=== PATIENT | male | born 1945 | race Caucasian/White ===

== ENCOUNTER → 2019-02-26 | Outpatient (CLI) | payer MEDICARE, OTHER ==
[~2019-02-26] MED LIST: ASPI81EC PO; B Complex1 EAC2 PO; CHOL10002 PO; Complete Multi1 EAC1 PO; DETROL; DIPATR PO; HYDMOR2 PO; LACT10SY PO; LISI5 PO; LORA.5; LORA1 PO; OMEP20ER PO; OXYACE5T PO; POTCIT5 PO; PROM25 PO; Prinivil10 MG PO; SULTRIDS PO; Vitamin C1000 M1 PO; ZOLP5
== END | disposition home or self-care (01) ==
LOC: PLD 10:04 → LAB SHORT 10:04
DX: C44.519 Basal cell carcinoma of skin of other part of trunk (principal)
CPT/HCPCS: 88305

== ENCOUNTER 2020-01-28 19:02 | Emergency (ER) | payer MEDICARE, OTHER ==
[~2020-01-28] VITALS: Ht 172.7 cm; Wt 74.8 kg
== END 2020-01-28 20:17 | disposition home or self-care (01) ==
LOC: ER 19:02
DX: N32.89 Other specified disorders of bladder (principal); F41.9 Anxiety disorder, unspecified; I10 Essential (primary) hypertension
CPT/HCPCS: 51798; 99282-25; A9270

== ENCOUNTER → 2020-11-23 | Outpatient (CLI) | payer MEDICARE, OTHER, BC ==
[~2020-11-23] MED LIST changes: +ATIVAN0.5 MG PO
== END ==
LOC: LAB SHORT 12:16 → PLD 12:16
DX: L08.89 Other specified local infections of the skin and subcutaneous tissue (principal)
CPT/HCPCS: 88305

== ENCOUNTER 2021-02-03 12:07 | Day surgery (SDC) | payer MEDICARE, OTHER, BC ==
[~2021-02-03] VITALS: Ht 172.7 cm; Wt 73.4 kg
== END 2021-02-03 14:35 | disposition home or self-care (01) ==
LOC: ORSCSDS 12:07
PROVIDERS: Surgery
PROC: 0DJD8ZZ Inspection of Lower Intestinal Tract, Via Natural or Artificial Opening Endoscopic (ICD-10-PCS; principal; 2021-02-03 13:30)
PROC: 0DB58ZX Excision of Esophagus, Via Natural or Artificial Opening Endoscopic, Diagnostic (ICD-10-PCS; principal; 2021-02-03 13:30)
DX: K21.9 Gastro-esophageal reflux disease without esophagitis (principal); K59.00 Constipation, unspecified; Z86.010 Personal history of colon polyps; I10 Essential (primary) hypertension; Z79.899 Other long term (current) drug therapy
CPT/HCPCS: 88305; J2704; J7120

== ENCOUNTER → 2021-03-29 | Outpatient (CLI) | payer MEDICARE, OTHER | LOC: LAB SHORT 11:48 → LAB 11:48 | DX: D48.5 Neoplasm of uncertain behavior of skin (principal) | CPT/HCPCS: 88305 ==

== ENCOUNTER → 2021-04-21 | Outpatient (CLI) | payer MEDICARE, OTHER | END | disposition home or self-care (01) | LOC: LAB SHORT 12:53 → LAB 12:53 | DX: C44.612 Basal cell carcinoma of skin of right upper limb, including shoulder (principal) | CPT/HCPCS: 88305 ==

== ENCOUNTER → 2021-05-05 | Outpatient (CLI) | payer MEDICARE, OTHER | LOC: LAB 14:34 → LAB SHORT 14:34 | DX: D48.5 Neoplasm of uncertain behavior of skin (principal) | CPT/HCPCS: 88305 ==

== ENCOUNTER → 2021-12-06 | Outpatient (CLI) | payer MEDICARE, OTHER | END | disposition home or self-care (01) | LOC: LAB SHORT 15:53 | DX: D48.5 Neoplasm of uncertain behavior of skin (principal) | CPT/HCPCS: 88305 ==

== ENCOUNTER 2022-05-09 11:52 | Day surgery (SDC) | payer MEDICARE, OTHER ==
[~2022-05-09] VITALS: Ht 172.7 cm; Wt 75.6 kg
== END 2022-05-09 13:39 | disposition home or self-care (01) ==
LOC: ORSCSDS 11:52
PROVIDERS: Ophthalmology
PROC: 08RK3JZ Replacement of Left Lens with Synthetic Substitute, Percutaneous Approach (ICD-10-PCS; principal; 2022-05-09 13:00)
DX: H25.12 Age-related nuclear cataract, left eye (principal); K21.9 Gastro-esophageal reflux disease without esophagitis; I10 Essential (primary) hypertension; Z79.82 Long term (current) use of aspirin; Z79.899 Other long term (current) drug therapy
CPT/HCPCS: J2250; J2704; J3010; J3301; J7040; V2632

== ENCOUNTER 2022-05-30 10:38 | Day surgery (SDC) | payer MEDICARE, OTHER, BC ==
[~2022-05-30] VITALS: Ht 172.7 cm; Wt 75.3 kg
[~2022-05-30 10:38] MED LIST changes: +BUPR100 PO; +LISI10 PO
--- NOTE | 2022-05-30 11:25 | NUR ---
05/30/22 1125 Margaret Ortiz @ 1122, DIONNA @ 1121
== END 2022-05-30 12:55 | disposition home or self-care (01) ==
LOC: ORSCSDS 10:38
PROVIDERS: Ophthalmology
PROC: 08RJ3JZ Replacement of Right Lens with Synthetic Substitute, Percutaneous Approach (ICD-10-PCS; principal; 2022-05-30 12:00)
DX: H25.11 Age-related nuclear cataract, right eye (principal); K21.9 Gastro-esophageal reflux disease without esophagitis; I10 Essential (primary) hypertension; F41.9 Anxiety disorder, unspecified; Z79.82 Long term (current) use of aspirin; Z79.899 Other long term (current) drug therapy
CPT/HCPCS: J2001; J2250; J3010; J3301; J7040; V2632

== ENCOUNTER → 2022-06-15 | Outpatient (CLI) | payer MEDICARE, OTHER | END | disposition home or self-care (01) | LOC: PLD 12:29 → LAB SHORT 12:29 | DX: D48.5 Neoplasm of uncertain behavior of skin (principal) | CPT/HCPCS: 88305 ==

== ENCOUNTER → 2022-11-29 | Outpatient (CLI) | payer MEDICARE, OTHER | END | disposition home or self-care (01) | LOC: LAB SHORT 11:08 | DX: L57.0 Actinic keratosis (principal) | CPT/HCPCS: 88305; 88312 ==

== ENCOUNTER → 2023-03-05 | Outpatient (CLI) | payer MEDICARE, OTHER ==
[~2023-03-05] MED LIST changes: +CALQUENCE100 M1 PO
== END | disposition home or self-care (01) ==
LOC: LAB SHORT 11:40 → PLD 11:40
DX: D48.5 Neoplasm of uncertain behavior of skin (principal)
CPT/HCPCS: 88305

== ENCOUNTER → 2023-04-26 | Outpatient (CLI) | payer MEDICARE, OTHER | END | disposition home or self-care (01) | LOC: LAB SHORT 14:39 → PLD 14:39 | DX: L57.0 Actinic keratosis (principal); L90.5 Scar conditions and fibrosis of skin | CPT/HCPCS: 88305 ==

== ENCOUNTER 2024-12-03 07:04 | Day surgery (SDC) | payer MEDICARE, OTHER ==
[~2024-12-03] VITALS: Ht 172.7 cm; Wt 76.1 kg
[~2024-12-03 07:04] MED LIST changes: +Lidocaine 2%-Epineph 1:200000 20 ML SDV ONE
[2024-12-03] MEDS ORDERED: Lactated Ringer's 1,000 ML IV ONE ×2 (08:05→11:29)
[2024-12-03] MEDS ORDERED: LOSA25 (08:08)
[2024-12-03] MEDS ORDERED: ALEN10 (08:09)
[2024-12-03] MEDS ORDERED: POTCIT10 (08:21)
[2024-12-03] MEDS ORDERED: OMEP20ER (08:21)
[2024-12-03] MEDS ORDERED: Phospha 250 Ne250 MG (08:21)
[2024-12-03] MEDS ORDERED: CINA30 (08:21)
[2024-12-03] MEDS ORDERED: [UNRECOGNIZED DRUG - OTHER] (08:21)
[2024-12-03] MEDS ORDERED: Ciprofloxacin 0.3% Opth Soln 2.5 ML BTL ONE (08:55)
[2024-12-03] MEDS ORDERED: propofoL 20 ML IV ONE (09:09)
[2024-12-03] MEDS ORDERED: ePHEDrine Sulfate 50 MG/ML 1ML Injection ONE (09:28)
[2024-12-03] MEDS ORDERED: Dexamethasone Sod Phos 10 MG/ML 1ML VIAL ONE (09:35)
[2024-12-03] MEDS ORDERED: Ondansetron HCl 2 MG / ML 2ML Vial ONE (09:35)
--- NOTE | 2024-12-03 09:42 | NUR ---
12/03/24 0942 Corey Verduzco CARE TAKEN TO AVOID POS ENTERING OR POOLING IN CANAL.
[2024-12-03] MEDS ORDERED: EPINEPhrine HCl 1 MG/ML 1ML Amp XX ONE (09:46)
[2024-12-03] MEDS ORDERED: Lidocaine 2%-Epineph 1:200000 20 ML SDV XX ONE (09:46)
[2024-12-03 10:24] VITALS: BP 126/80
== END 2024-12-03 10:58 | disposition home or self-care (01) ==
LOC: ORSCSDS 07:04
PROVIDERS: Otolaryngology
PROC: 09B00ZZ Excision of Right External Ear, Open Approach (ICD-10-PCS; principal; 2024-12-03 08:45)
DX: H61.891 Other specified disorders of right external ear (principal); I12.9 Hypertensive chronic kidney disease with stage 1 through stage 4 chronic kidney disease, or unspecified chronic kidney disease; N18.30 Chronic kidney disease, stage 3 unspecified; K21.9 Gastro-esophageal reflux disease without esophagitis; N40.0 Benign prostatic hyperplasia without lower urinary tract symptoms; F41.9 Anxiety disorder, unspecified; Z79.899 Other long term (current) drug therapy; Z85.528 Personal history of other malignant neoplasm of kidney
CPT/HCPCS: A9270; J0171; J1100; J2405; J2704; J7120

== ENCOUNTER 2025-01-21 06:09 | Day surgery (SDC) | payer MEDICARE, OTHER ==
[~2025-01-21] VITALS: Ht 172.7 cm; Wt 75.2 kg
[~2025-01-21 06:09] MED LIST changes: +ALEN10; +CINA30; +LOSA25; -Lidocaine 2%-Epineph 1:200000 20 ML SDV ONE; +OMEP20ER; +POTCIT10; +Phospha 250 Ne250 MG; +[UNRECOGNIZED DRUG - OTHER]
[2025-01-21] MEDS ORDERED: Lidocaine 1%-Epineph 1:200000 30 ML SDV ONE (06:42)
[2025-01-21] MEDS ORDERED: Lactated Ringer's 1,000 ML IV ONE (06:45)
[2025-01-21] MEDS ORDERED: FentaNYL Citrate 50 MCG/ML 2 ML Injection ONE ×2 (07:01→09:13)
[2025-01-21] MEDS ORDERED: Dexamethasone Sod Phos 10 MG/ML 1ML VIAL ONE (07:02)
[2025-01-21] MEDS ORDERED: Ondansetron HCl 2 MG / ML 2ML Vial ONE (07:02)
[2025-01-21] MEDS ORDERED: propofoL 20 ML IV ONE ×2 (07:02→07:38)
[2025-01-21] MEDS ORDERED: Rocuronium Bromide 10 MG/ML 5ML Injection IV ONE (07:02)
[2025-01-21] MEDS ORDERED: Phenylephrine HCl 100 MCG/ML-NS 10MLSYR (1MG/10ML) ONE (08:04)
--- NOTE | 2025-01-21 08:34 | NUR ---
01/21/[address] CALLED CONFIRIMING SPECIMEN WAS HYPERCELLUAL PARATHYROID TISSUE. DR. RICHARDS NOTIFIED
--- NOTE | 2025-01-21 09:35 | NUR ---
01/21/25 0935 MAU MCNAMARA PT REPORTS FEELING DIZZY, LAYING IN BED, HEAD ELEVATED. FAMILY AT BEDSIDE. PATIENT TOLERATING POPSICLE.
[2025-01-21] MEDS ORDERED: OxyCODONE HCL 5 MG TAB ONE (09:38)
[2025-01-21 09:44] VITALS: BP 144/88
== END 2025-01-21 10:24 | disposition home or self-care (01) ==
LOC: ORSCSDS 06:09
PROVIDERS: Otolaryngology
PROC: 0GTP0ZZ Resection of Left Inferior Parathyroid Gland, Open Approach (ICD-10-PCS; principal; 2025-01-21 07:30)
DX: E21.0 Primary hyperparathyroidism (principal); D35.1 Benign neoplasm of parathyroid gland; I12.9 Hypertensive chronic kidney disease with stage 1 through stage 4 chronic kidney disease, or unspecified chronic kidney disease; N18.9 Chronic kidney disease, unspecified; K21.9 Gastro-esophageal reflux disease without esophagitis; Z79.899 Other long term (current) drug therapy; F41.9 Anxiety disorder, unspecified
CPT/HCPCS: 83970; 88305; 88331; A9270; J1100; J2371; J2405; J2704; J3010

== ENCOUNTER → 2025-02-13 | Outpatient (CLI) | payer MEDICARE, OTHER ==
[2025-02-13 10:43] LABS: Source, Urine Voided
[2025-02-13 12:15] LABS: Appearance, Urine Clear (Clear); Bilirubin, Urine Neg (Neg); Blood, Urine Neg (Neg); Glucose Qualitative, Urine Neg (Neg); Ketones, Urine Neg (Neg); Leukocyte Esterase, Urine Neg (Neg); Nitrite, Urine Neg (Neg); Protein, Urine Neg (Neg); Specific Gravity, Urine 1.005 (1.003-1.022); Urobilinogen, Urine NORM (Normal)
[2025-02-13 12:26] LABS: Color, Urine Pale Yellow (P-Yellow)
[2025-02-13 12:52] LABS: Protein, Urine Random <5.0 mg/dL (0.0-11.9); Protein/Creat Ratio, Ur Random Unable to Calculate
== END ==
LOC: LAB SHORT 10:37 → LAB 10:37
PROVIDERS: Hospitalist
DX: N18.32 Chronic kidney disease, stage 3b (principal)
CPT/HCPCS: 81003; 82570; 84156

== ENCOUNTER → 2025-10-07 | Outpatient (CLI) | payer MEDICARE ==
[2025-10-07 14:40] LABS: BASOPHILS ABSOLUTE AUTO 0.02 K/mm3 (0.00-0.23); BASOPHILS PERCENT AUTO 1 % (0-2); EOSINOPHILS ABSOLUTE AUTO 0.09 K/mm3 (0.00-0.68); EOSINOPHILS PERCENT AUTO 2 % (0-6); Hematocrit 45.7 % (37.0-53.0); Hemoglobin 15.7 g/dL (13.5-17.5); IMMATURE GRAN ABSOLUTE AUTO 0.01 K/mm3 (0.00-0.10); IMMATURE GRAN PERCENT AUTO 0 % (0-1); LYMPHOCYTES ABSOLUTE AUTO 0.74 K/mm3 (0.84-5.20); LYMPHOCYTES PERCENT AUTO 17 % (21-46); MONOCYTES ABSOLUTE AUTO 0.60 K/mm3 (0.16-1.47); MONOCYTES PERCENT AUTO 14 % (4-13); Mean Corpuscular HGB Conc 34.4 g/dL (31.5-36.5); Mean Corpuscular Volume 94 fL (80-100); NEUTROPHILS ABSOLUTE AUTO 2.87 K/mm3 (1.96-9.15); NEUTROPHILS PERCENT AUTO 66 % (41-73); NRBC ABSOLUTE 0.00 K/mm3 (0.00-0.02); NRBC Auto 0.0 /100 WBC (0.0-0.2); Platelet Count 172 K/mm3 (150-400); RDW Coefficient Variation 13.4 % (11.7-14.2); RDW Standard Deviation 46.2 fL (35.1-46.3)
[2025-10-07 19:52] LABS: Alanine Aminotransfer (ALT/SGP 23 U/L (12-78); Albumin, Blood 4.0 g/dL (3.4-5.0); Albumin/Globulin Ratio 1.5 (0.8-1.8); Anion Gap 9 mmol/L (3-11); Aspartate Aminotrans (AST/SGOT 15 U/L (12-37); Bilirubin, Total 0.6 mg/dL (0.1-1.0); Blood Urea Nitrogen 18 mg/dL (8-24); CHOL/HDL RATIO 5.5; CO2, Blood 25 mmol/L (21-32); Calcium, Blood 8.6 mg/dL (8.5-10.1); Chloride, Blood 112 mmol/L (98-108); Cholesterol 176 mg/dL (50-200); Creatinine, Blood 1.44 mg/dL (0.60-1.20); Globulin, Blood 2.7 g/dL (2.2-4.0); Glucose, Blood 94 mg/dL (70-99); HDL Cholesterol 32 mg/dL (>39); LDL/HDL RATIO 2.5; Low Density Lipoprotein Chol 81 mg/dL (0-110); Potassium, Blood 4.5 mmol/L (3.5-5.5); Sodium, Blood 141 mmol/L (136-145); Total Protein, Blood 6.7 g/dL (6.4-8.2); Triglycerides 313 mg/dL (30-160); Very Low Density Lipoprot Chol 62 mg/dL (6-32)
== END ==
LOC: LAB 13:57 → LAB SHORT 13:57
PROVIDERS: Family Medicine
DX: I10 Essential (primary) hypertension (principal); C91.10 Chronic lymphocytic leukemia of B-cell type not having achieved remission; R73.9 Hyperglycemia, unspecified
CPT/HCPCS: 80053; 80061; 83036; 85025